=== PATIENT | female | born 1990 | race American Indian/Alaskan Native ===

== ENCOUNTER 2020-04-07 12:18 | Emergency (ER) | payer SELFPAY ==
[2020-04-07 13:34] LABS: Alanine Aminotransferase 18 units/L (7-56); Albumin 3.7 g/dL (3.9-5); Blood Urea Nitrogen 7 mg/dL (7-17); Calcium 9.4 mg/dL (8.4-10.2); Hemolysis Index 2
[2020-04-07 13:35] LABS: BUN/Creatinine Ratio 10
[2020-04-07 13:41] LABS: Basophils # (Auto) 0.1 K/mm3 (0.0-0.1); Basophils % (Auto) 0.5 % (0.0-1.8); Eosinophils % (Auto) 0.2 % (0.0-4.3); Hematocrit 34.3 % (30.3-42.9); Hemoglobin 10.9 gm/dl (10.1-14.3); Lymphocytes # (Auto) 1.3 K/mm3 (1.2-5.4); Lymphocytes % (Auto) 8.4 % (13.4-35.0); Mean Corpuscular HGB Conc 32 % (30-34); Mean Corpuscular Volume 76 fl (79-97); Monocytes % (Auto) 6.1 % (0.0-7.3); Platelet Count 452 K/mm3 (140-440); Red Blood Count 4.54 M/mm3 (3.65-5.03); Red Cell Distribution Width 15.6 % (13.2-15.2)
[2020-04-07] MEDS ORDERED: SODIUM CHLORIDE 0.9% 1000 ML 1,000 ML IV ONE (14:01)
--- NOTE | 2020-04-07 14:08 | Emergency Department Report ---
HPI - HPI HPI: Room 6 The patient is a 29-year-old female present with a chief complaint of abdominal pain nausea vomiting. Patient states she developed right-sided abdominal pain 3 days ago described as aching in nature. Patient states the pain is been intermittent and does not change with meals. Patient admits to nausea vomiting and body aches. Patient states last week she had dysuria but none now. Patient denies diarrhea or cough or known contact with COVID patients. Patient admits to subjective fever. <OLIVIA COHEN - Last Filed: 04/07/20 16:39> <PATTI EASLEY III - Last Filed: 04/07/20 21:46> - General Chief Complaint: Hyperglycemia Time Seen by Provider: 04/07/20 13:36 ED Past Medical Hx - Past Medical History Hx Diabetes: Yes - Surgical History Additional Surgical History: BL leg, L knee - Family History Family history: no significant - Social History Smoking Status: Current Every Day Smoker (1 pack/day) Substance Use Type: None (Denies illicit drug use) <OLIVIA COHEN - Last Filed: 04/07/20 16:39> <PATTI EASLEY III - Last Filed: 04/07/20 21:46> - Medications Home Medications: Home Medications Medication Instructions Recorded Confirmed Last Taken Type Ondansetron [Zofran Odt] 4 mg PO Q6HR PRN #20 tab.rapdis 04/07/20 Unknown Rx levoFLOXacin [Levaquin TAB] 500 mg PO QDAY 10 Days #10 tablet 04/07/20 Unknown Rx ED Review of Systems ROS: Stated complaint: SUGAR HIGH Other details as noted in HPI Constitutional: fever (Subjective) Respiratory: no symptoms reported Endocrine: no symptoms reported Gastrointestinal: abdominal pain, nausea, vomiting. denies: diarrhea Genitourinary: dysuria <OLIVIA COHEN - Last Filed: 04/07/20 16:39> ROS: Stated complaint: SUGAR HIGH Other details as noted in HPI <PATTI EASLEY III - Last Filed: 04/07/20 21:46> Physical Exam - Physical Exam Vital Signs: Vital Signs 04/07/20 04/07/20 04/07/20 12:28 13:35 13:45 Temperature 99.6 F Pulse Rate 120 H 98 H 102 H Respiratory 18 20 37 H Rate Blood Pressure 143/87 135/76 Blood Pressure 131/97 [Left] O2 Sat by Pulse 99 99 99 Oximetry Physical Exam: GENERAL: The patient is well-developed well-nourished female lying on stretcher sleeping not appearing to be in acute distress. [] HEENT: Normocephalic. Atraumatic. Extraocular motions are intact. Patient has moist mucous membranes. NECK: Supple. Trachea midline CHEST/LUNGS: Clear to auscultation. There is no respiratory distress noted. HEART/CARDIOVASCULAR: Regular. There is no tachycardia. There is no gallop rub or murmur. ABDOMEN: Abdomen is soft, with tenderness to palpation in the suprapubic region. Patient has normal bowel sounds. There is no abdominal distention. SKIN: There is no rash. There is no edema. There is no diaphoresis. NEURO: The patient is awake, alert, and oriented. The patient is cooperative. The patient has normal speech MUSCULOSKELETAL: There is no CVA tenderness. There is no evidence of acute injury. <OLIVIA COHEN K - Last Filed: 04/07/20 16:39> - Physical Exam Vital Signs: Vital Signs 04/07/20 04/07/20 04/07/20 12:28 13:35 13:45 Temperature 99.6 F Pulse Rate 120 H 98 H 102 H Respiratory 18 20 37 H Rate Blood Pressure 143/87 135/76 Blood Pressure 131/97 [Left] O2 Sat by Pulse 99 99 99 Oximetry 04/07/20 04/07/20 14:45 15:31 Temperature Pulse Rate 98 H 88 Respiratory 33 H 24 Rate Blood Pressure 123/62 123/62 Blood Pressure [Left] O2 Sat by Pulse 100 99 Oximetry <PATTI EASLEY III K - Last Filed: 04/07/20 21:46> ED Course Vital Signs 04/07/20 04/07/20 04/07/20 12:28 13:35 13:45 Temperature 99.6 F Pulse Rate 120 H 98 H 102 H Respiratory 18 20 37 H Rate Blood Pressure 143/87 135/76 Blood Pressure 131/97 [Left] O2 Sat by Pulse 99 99 99 Oximetry <OLIVIA COHEN K - Last Filed: 04/07/20 16:39> Vital Signs 04/07/20 04/07/20 04/07/20 12:28 13:35 13:45 Temperature 99.6 F Pulse Rate 120 H 98 H 102 H Respiratory 18 20 37 H Rate Blood Pressure 143/87 135/76 Blood Pressure 131/97 [Left] O2 Sat by Pulse 99 99 99 Oximetry 04/07/20 04/07/20 14:45 15:31 Temperature Pulse Rate 98 H 88 Respiratory 33 H 24 Rate Blood Pressure 123/62 123/62 Blood Pressure [Left] O2 Sat by Pulse 100 99 Oximetry - Reevaluation(s) Reevaluation #1: Patient was signed out to me from previous physician at 8 PM. Patient states that her pain is resolved. Patient states her nausea has resolved. I discussed all results and clinical findings with patient. I discussed plan of care with patient. Patient agrees with plan of care. Patient is stable for discharge. Patient will be discharged home. Patient given discharge instructions. Patient voiced understanding of discharge instructions. 04/07/20 21:41 <PATTI EASLEY III - Last Filed: 04/07/20 21:46> ED Medical Decision Making - Lab Data Result diagrams: 04/07/20 12:39 04/07/20 12:39 Laboratory Tests 04/07/20 04/07/20 04/07/20 12:39 12:39 12:39 WBC 15.9 H RBC 4.54 Hgb 10.9 Hct 34.3 MCV 76 L MCH 24 L MCHC 32 RDW 15.6 H Plt Count 452 H Lymph % (Auto) 8.4 L [place] % (Auto) 6.1 Eos % (Auto) 0.2 Baso % (Auto) 0.5 Lymph # (Auto) 1.3 [place] # (Auto) 1.0 H Eos # (Auto) 0.0 Baso # (Auto) 0.1 Seg Neutrophils % 84.8 H Seg Neutrophils # 13.5 H VBG pH Sodium 132 L Potassium 3.8 Chloride 93.9 L Carbon Dioxide 25 Anion Gap 17 BUN 7 Creatinine 0.7 Estimated GFR > 60 BUN/Creatinine Ratio 10 Glucose 323 H POC Glucose Calcium 9.4 Total Bilirubin 0.30 AST 15 ALT 18 Alkaline Phosphatase 118 Total Protein 8.0 Albumin 3.7 L Albumin/Globulin Ratio 0.9 Lipase 28 HCG, Qual Negative Urine Color Urine Turbidity Urine pH Ur Specific [place] Urine Protein Urine Glucose (UA) Urine Ketones Urine Blood Urine Nitrite Urine Bilirubin Urine Urobilinogen Ur Leukocyte Esterase Urine WBC (Auto) Urine RBC (Auto) U Epithel Cells (Auto) Urine Bacteria (Auto) Urine Mucus 04/07/20 04/07/20 04/07/20 12:42 12:46 15:47 WBC RBC Hgb Hct MCV MCH MCHC RDW Plt Count Lymph % (Auto) [place] % (Auto) Eos % (Auto) Baso % (Auto) Lymph # (Auto) [place] # (Auto) Eos # (Auto) Baso # (Auto) Seg Neutrophils % Seg Neutrophils # VBG pH 7.337 Sodium Potassium Chloride Carbon Dioxide Anion Gap BUN Creatinine Estimated GFR BUN/Creatinine Ratio Glucose POC Glucose 302 H Calcium Total Bilirubin AST ALT Alkaline Phosphatase Total Protein Albumin Albumin/Globulin Ratio Lipase HCG, Qual Urine Color Straw Urine Turbidity Clear Urine pH 6.0 Ur Specific [place] 1.051 H Urine Protein 30 mg/dl Urine Glucose (UA) >=500 Urine Ketones 20 Urine Blood Neg Urine Nitrite Neg Urine Bilirubin Neg Urine Urobilinogen < 2.0 Ur Leukocyte Esterase Lg Urine WBC (Auto) 104.0 H Urine RBC (Auto) 5.0 U Epithel Cells (Auto) 3.0 Urine Bacteria (Auto) 1+ Urine Mucus Few - Radiology Data Radiology results: report reviewed (CT abdomen pelvis), image reviewed (CT abdomen pelvis) [facility] [address] [place] [address] Cat Scan Report Signed Patient: JAQUELIN MORALES MR#: [id number] : 1990 Acct:[id number] Age/Sex: 29 / F ADM Date: 04/07/20 Loc: ED Attending Dr: Ordering Physician: OILVIA COHEN MD Date of Service: 04/07/20 Procedure(s): CT abdomen pelvis w con Accession Number(s): [id number] cc: OLIVIA COHEN MD CT abdomen pelvis w con INDICATION: Lower abdominal pain nausea vomiting. TECHNIQUE: All CT scans at this location are performed using CT dose reduction for ALARA by means of automated exposure control. COMPARISON: None available. FINDINGS: Lung bases are clear of acute disease. Liver, gallbladder, spleen, pancreas, kidneys and adrenals are negative. Abdominal aorta is normal in size. No adenopathy. Pelvis Normal appendix. The uterus is deviated to the left by what appears to be a large (8.2 cm x 5.9 cm x 9.1 cm) right adnexal mass. Urinary bladder is negative although somewhat compressed by the mass. Left ovary appears unremarkable. No skeletal lesions. IMPRESSION: 1. 9 cm maximum diameter solid appearing right adnexal mass. Suggest ultrasound as a first step in further evaluation. Signer Name: Nael Moreno MD Signed: 04/07/2020 4:28 PM Workstation Name: [id number] Transcribed By: TM Dictated By: Nael Moreno MD Electronically Authenticated By: Nael Moreno MD Signed Date/Time: 04/07/201627 DD/ 22 TD/TT: <OLIVIA COHEN - Last Filed: 04/07/20 16:39> - Lab Data Result diagrams: 04/07/20 12:39 04/07/20 12:39 <PATTI EASLEY III - Last Filed: 04/07/20 21:46> Critical care attestation.: If time is entered above; I have spent that time in minutes in the direct care of this critically ill patient, excluding procedure time. <OLIVIA COHEN - Last Filed: 04/07/20 16:39> Critical care attestation.: If time is entered above; I have spent that time in minutes in the direct care of this critically ill patient, excluding procedure time. <PATTI EASLEY III - Last Filed: 04/07/20 21:46> ED Disposition <OLIVIA COHEN - Last Filed: 04/07/20 16:39> Is pt being admited?: No Does the pt Need Aspirin: No Time of Disposition: 21:46 <PATTI EASLEY III - Last Filed: 04/07/20 21:46> Clinical Impression: Abdominal pain Qualifiers: Abdominal location: lower abdomen, unspecified Qualified Code(s): R10.30 - Lower abdominal pain, unspecified Uterine fibroid Qualifiers: Uterine leiomyoma location: unspecified location Qualified Code(s): D25.9 - Leiomyoma of uterus, unspecified Nausea & vomiting Qualifiers: Vomiting type: unspecified Vomiting Intractability: non-intractable Qualified Code(s): R11.2 - Nausea with vomiting, unspecified UTI (urinary tract infection) Qualifiers: Urinary tract infection type: acute cystitis Hematuria presence: with hematuria Qualified Code(s): N30.01 - Acute cystitis with hematuria Disposition: TO HOME OR SELFCARE Condition: Stable Instructions: Uterine Fibroids (ED), Urinary Tract Infection in Women (ED) Additional Instructions: Patient to follow-up with primary care in 2 to 3 days. Patient to follow-up with TRAINING AND DEVELOPMENT COORDINATOR in 2 to 3 days. Patient to rest. Patient to increase water. Patient to avoid strenuous exercise or heavy lifting until cleared by TRAINING AND DEVELOPMENT COORDINATOR. Patient to take Tylenol or ibuprofen as needed for pain. Patient to take meds as directed. Patient to return to the ER if condition worsens, changes or new symptoms arise. Prescriptions: levoFLOXacin [Levaquin TAB] 500 mg PO QDAY 10 Days #10 tablet Ondansetron [Zofran Odt] 4 mg PO Q6HR PRN #20 tab.rapdis PRN Reason: Nausea And Vomiting Referrals: PRIMARY MD GABY [Primary Care Provider] - 2-3 Days SIMA SIMEON MD [Staff Physician] - 2-3 Days
[2020-04-07 16:09] LABS: Bacteria,Urine 1+ /HPF (Negative); Bilirubin,Urine NEG (Negative); Blood,Urine NEG (Negative); Color,Urine Straw (Yellow); Mucus,Urine FEW /HPF; Urobilinogen,Urine < 2.0 mg/dL (<2.0)
--- NOTE | 2020-04-07 16:33 | Cat Scan Report ---
CT abdomen pelvis w con INDICATION: Lower abdominal pain nausea vomiting. TECHNIQUE: All CT scans at this location are performed using CT dose reduction for ALARA by means of automated e xposure control. COMPARISON: None available. FINDINGS: Lung bases are clear of acute disease. Liver, gallbladder, spleen, pancreas, kidneys and adrenals are negative. Abdominal aorta is normal in size. No adenopathy. Pelvis Normal appendix. The uterus is deviated to the left by what appears to be a large (8.2 cm x 5.9 cm x 9.1 cm) right adnexal mass. Urinary bladder is negative although somewhat compressed by the mass. Lef t ovary appears unremarkable. No skeletal lesions. IMPRESSION: 1. 9 cm maximum diameter solid appearing right adnexal mass. Suggest ultrasound as a first step in fu rther evaluation. Signer Name: Nael Moreno MD Signed: 04/07/2020 4:28 PM Workstation Name: [id number]
[2020-04-07] MEDS ORDERED: levoFLOXacin 500 MG TAB PO ONE (16:40)
[2020-04-07] MEDS ORDERED: ONDANSETRON 4 MG/2 ML INJ IV ONE (18:37)
[2020-04-07] MEDS ORDERED: fentaNYL 100 MCG/2 ML INJ IV ONE (20:20)
[2020-04-07] MEDS ORDERED: METOCLOPRAMIDE 10 MG/2 ML INJ IV ONE (20:20)
--- NOTE | 2020-04-07 20:21 | Ultrasound Report ---
PELVIC ULTRASOUND INDICATION: Right adnexal mass on CT, lower abdominal pain, nausea, vomiting COMPARISON: CT abdomen and pelvis today TECHNIQUE: Transabdominal and endovaginal FINDINGS: Uterus measures 6.7 x 4.2 x 5.2 cm. Endometrial stripe measures 12 mm. No fluid is seen wit hin the endometrial canal. No uterine abnormalities are noted. Right ovary measures 3.5 cm in length and shows small follicular-type cysts. Left ovary measures 3.4 cm in length and shows no focal abnormalities. Flow is noted in both ovaries. Based minimal amount of free fluid is seen in the cul-de-sac which is a nonspecific finding. IMPRESSION: No significant abnormalities are seen. The solid-appearing adnexal mass on the right on C T is not detected. Clearly this is present by CT in given the normal appearance of the ovaries I susp ect this is either a large endometrioma or possibly an unusually large pedunculated leiomyoma though given the size and shape this is not favored. Certainly I would at least suggest CT follow-up. Signer Name: Lizandro Celaya MD Signed: 04/07/2020 8:16 PM Workstation Name: [id number]
[2020-04-07 22:25] VITALS: BP 143/68
== END 2020-04-07 21:58 | disposition home or self-care (01) ==
LOC: ED 12:18
DX: D25.9 Leiomyoma of uterus, unspecified (principal); N39.0 Urinary tract infection, site not specified; R11.2 Nausea with vomiting, unspecified; E11.9 Type 2 diabetes mellitus without complications; F17.200 Nicotine dependence, unspecified, uncomplicated; Z79.899 Other long term (current) drug therapy
CPT/HCPCS: 36415; 74177; 76830; 76856; 80053; 81001; 82805; 82962; 83690; 84703; 85025; 96361; 96374; 96375; 99284; J2405; J2765; J3010; J7030; Q9967